=== PATIENT | female | born 1980 | race Caucasian/White ===

== ENCOUNTER 2023-06-07 09:19 | Emergency (ER) | payer MEDICAID ==
[~2023-06-07] VITALS: Ht 180.3 cm; Wt 90.9 kg
[2023-06-07 09:54] VITALS: BP 114/84; PULSE 110; TEMP 102.3; O2SAT 99
[2023-06-07] MEDS ORDERED: ibuprofen 200mg tablet PO ONE (10:10)
[2023-06-07] MEDS ORDERED: ketorolac trometh inj. 60 MG/2 ML VIAL IM ONE (12:35)
[2023-06-07 13:15] VITALS: RESP 16
[2023-06-07] MEDS ORDERED: PHE12.5R RC (17:29)
[2023-06-07] MEDS ORDERED: METH4TAB81 PO (17:29)
[2023-06-07] MEDS ORDERED: DOXY150T9 PO (17:29)
== END 2023-06-07 13:24 | disposition home or self-care (01) ==
LOC: ER 09:20
DX: B34.9 Viral infection, unspecified (principal); Z20.822 Contact with and (suspected) exposure to COVID-19; R42 Dizziness and giddiness; J45.909 Unspecified asthma, uncomplicated; Z85.850 Personal history of malignant neoplasm of thyroid; Z88.2 Allergy status to sulfonamides; Z88.8 Allergy status to other drugs, medicaments and biological substances
CPT/HCPCS: 36415; 71045; 87502; 87503; 87811; 99284